=== PATIENT | female | born 1945 | race Caucasian/White ===

== ENCOUNTER 2016-12-04 13:00 | Emergency (ER) | payer MEDICARE ==
--- NOTE | 2016-12-04 14:04 | ER NURSING DOCUMENTATION ---
Nurse's Notes [facility] Name:Danna Olivares Age:71 yrs Sex:Female :1945 Arrival Date:12/04/2016 Time:13:00 Bed1 Private MD:Tika Santos Diagnosis:Cephalgia Presentation: 12/04 13:05 Acuity: FRANCISCA 3 ma 13:08 Presenting complaint: Patient states: Pt woke up yesterday AM with pain on right side tg of head (severe). thinks she lept against a hard headboard. Took 2 tylenol with no improvement. Pain has come and gone. Reecnt sinus headaches, recent dental infection (treated with amoxicillin). Describes the pain as a very focused "zing.". Transition of care: patient was not received from another setting of care. 13:08 Method Of Arrival: Private Vehicle tg Triage Assessment: 13:12 EENT: Reports intermittant blurry vision. tg 13:22 General: Appears in no apparent distress, Behavior is cooperative, pleasant. Pain: tg Complains of pain in right side of the back of head Pain At worst was 8 out of 10 on a pain scale. Pain began 1 day ago. Neuro: Level of Consciousness is awake, alert, Oriented to person, place, time, event, Moves all extremities. Speech is normal, Facial symmetry appears normal, Pupils are PERRLA, Denies weakness. Respiratory: Respiratory effort is even, unlabored. Derm: Skin is pink, warm & dry. Historical: - Allergies: TROVAN; SULFA (SULFONAMIDES); Positive latex allergy; Lisinopril; - Home Meds: 1. brio 2. OXYGEN 3. levothyroxine oral 4. Coumadin Oral 5. SPIRIVA 6. Avapro Oral 7. Lasix Oral - PMHx: PE; COPD; ASTHMA; antiphospholipid antibody; Conjunctival Abrasion (January 24, 2016); - PSHx: HYSTERECTOMY; TONSILLECTOMY; - Tetanus: < 10 years. - Ebola Screening: : Patient negative for fever greater than or equal to 101.5 degrees Fahrenheit, and additional compatible Ebola Virus Disease symptoms. Patient denies exposure to infectious person. Patient denies travel to an Ebola-affected area in the 21 days before illness onset. No symptoms or risks identified at this time. . - Immunization history: Flu Vaccine < 1 year. - Social history: Smoking status: Patient states former smoker of tobacco. Screenin:28 Infectious Disease Risk Unable to Obtain. Abuse screen: Denies threats or abuse. Denies tg injuries from another. Nutritional screening: No deficits noted. Assessment: 13:28 See Triage Assessment done by same RN. tg Vital Signs: 13:14 BP 157 / 60; Pulse 79; Resp 18; Temp 98.4(O); Pulse Ox 94% on 2.5 lpm NC; Weight 60.33 tg kg (R); Height 5 ft. (152.40 cm); Pain 4/10; 13:14 Body Mass Index 25.97 (60.33 kg, 152.40 cm) tg [place] Coma Score: 13:30 Eye Response: spontaneous(4). Verbal Response: oriented(5). Motor Response: obeys cd commands(6). Total: 15. ED Course: 13:03 Patient arrived in ED. arc 13:04 Tika Santos MD is Private Physician. arc 13:05 Triage completed. susie 13:08 Long Li RN is Primary Nurse. tg 13:27 Arm band placed on. tg 13:28 Valuables Remains with patient. tg 13:34 Brian Carey MD is Attending Physician. cd Administered Medications: No medications were administered Outcome: 13:38 Discharge ordered by . cd 13:56 Discharged to home ambulatory. tg 13:56 Condition: unchanged 13:56 Discharge Assessment: Patient awake, alert and oriented x 3. No cognitive and/or functional deficits noted. Patient verbalized understanding of disposition instructions. Pt is going directly to [facility] for eval- [facility] does not have catscan at this time 13:56 Instructed on discharge instructions, follow up and referral plans. 14:03 Patient left the ED. tg Signatures: Long Li RN RN tg Abuso, Melanie, RN RN ma Daley, Chris, MD MD cd Sushila Escoto, Reg Reg arc
--- NOTE | 2016-12-04 14:04 | ER PHYSICIAN DOCUMENTATION ---
Physician Documentation [facility] Name:Danna Olivares Age:71 yrs Sex:Female :1945 Arrival Date:12/04/2016 Time:13:00 Bed1 Private MD:Tika Santos ED, Chris Disposition: 12/04/16 13:38 Discharged to Home/Self Care. Impression: Cephalgia. - Condition is Good. - Discharge Instructions: HEADACHE, Unspecified. - Medical Reconciliation form form. - Follow up: Private Physician; When: Today; Reason: Recheck today's complaints, Continuance of care. - Problem is new. - Symptoms are unchanged. - Notes: Go to [facility] Department for evaluation and a CT scan of the Brain to rule out Intracranial Hemorrhage HPI: 12/04 13:05 This 71 yrs old Female presents to ER via Private Vehicle with complaints of cd Headache > 24hrs Old. 13:05 The patient complains of pain to the right side of the back of head and right occipital cd area. The patient describes the headache as intermittent, "zinging pain". Onset: The symptoms/episode began/occurred yesterday. Associated signs and symptoms: Pertinent negatives: altered mental status, dizziness, fever, nausea, neck stiffness, paresthesias, sinus congestion, sinus tenderness, vision changes, vision loss, vomiting, weakness. Severity of symptoms: At its worst the pain was moderate, in the emergency department the pain is unchanged. Headache History: Denies prior headaches. Patient is on Coumadin and her last INR was 2.6 6 days ago. Historical: - Allergies: TROVAN; SULFA (SULFONAMIDES); Positive latex allergy; Lisinopril; - Home Meds: 1. brio 2. OXYGEN 3. levothyroxine oral 4. Coumadin Oral 5. SPIRIVA 6. Avapro Oral 7. Lasix Oral - PMHx: PE; COPD; ASTHMA; antiphospholipid antibody; Conjunctival Abrasion (January 24, 2016); - PSHx: HYSTERECTOMY; TONSILLECTOMY; - Tetanus: < 10 years. - Ebola Screening: : Patient negative for fever greater than or equal to 101.5 degrees Fahrenheit, and additional compatible Ebola Virus Disease symptoms. Patient denies exposure to infectious person. Patient denies travel to an Ebola-affected area in the 21 days before illness onset. No symptoms or risks identified at this time. . - Immunization history: Flu Vaccine < 1 year. - Social history: Smoking status: Patient states former smoker of tobacco. ROS: 13:16 Constitutional: Negative for chills, fatigue, fever, poor PO intake. cd 13:16 Neck: Negative for pain with movement, pain at rest, stiffness. 13:16 Neuro: Positive for headache, Negative for altered mental status, dizziness, gait disturbance, loss of consciousness, numbness, seizure activity, speech changes, syncope, tingling, visual changes, weakness. 13:16 All other systems are negative. Exam: 13:16 ENT: Nares patent. No nasal discharge, no septal abnormalities noted. Tympanic cd membranes are normal and external auditory canals are clear. Oropharynx with no redness, swelling, or masses, exudates, or evidence of obstruction, uvula midline. Mucous membranes moist. Cardiovascular: Regular rate and rhythm with a normal S1 and S2. No gallops, murmurs, or rubs. Normal PMI, no JVD. No pulse deficits. Respiratory: Lungs have equal breath sounds bilaterally, clear to auscultation and percussion. No rales, rhonchi or wheezes noted. No increased work of breathing, no retractions or nasal flaring. Abdomen/GI: Soft, non-tender, with normal bowel sounds. No distension or tympany. No guarding or rebound. No evidence of tenderness throughout. Back: No spinal tenderness. No costovertebral tenderness. Full range of motion. Skin: Warm, dry with normal turgor. Normal color with no rashes, no lesions, and no evidence of cellulitis. 13:16 MS/ Extremity: Pulses equal, no cyanosis. Neurovascular intact. Full, normal range cd of motion. 13:16 Constitutional: The patient appears alert, awake, non-diaphoretic, non-toxic, well developed, well nourished, anxious, in obvious distress, mildly distressed. 13:16 Head/face: Noted is tenderness, that is mild, of the right occipital area, Sinus tenderness, is not appreciated. 13:16 Eyes: Pupils: equal, round, and reactive to light and accomodation. 13:16 Neck: ROM/movement: is normal. 13:16 Neuro: Orientation: is normal, Mentation: is normal, Cranial nerves: CN II- XII are normal as tested, Cerebellar function: is grossly normal, Motor: is normal, Sensation: is normal, Gait: is steady. Vital Signs: 13:14 BP 157 / 60; Pulse 79; Resp 18; Temp 98.4(O); Pulse Ox 94% on 2.5 lpm NC; Weight 60.33 tg kg (R); Height 5 ft. (152.40 cm); Pain 4/10; 13:14 Body Mass Index 25.97 (60.33 kg, 152.40 cm) tg [place] Coma Score: 13:30 Eye Response: spontaneous(4). Verbal Response: oriented(5). Motor Response: obeys cd commands(6). Total: 15. MDM: 13:30 Neurological re-evaluation: normal neurological exam including cranial nerves, cd orientation, mentation, motor and sensory exam, cerebellar testing, GCS normal, and normal gait. Data reviewed: vital signs, nurses notes, old medical records, and as a result, I will discharge patient, and send the patient to [facility] ED for a CT Scan of the Brain to rule out ICH. She is stable for private vehicle transport. Her INR today is 3.1. Counseling: I had a detailed discussion with the patient and/or guardian regarding: the historical points, exam findings, and any diagnostic results supporting the discharge/admit diagnosis, lab results. 13:34 Patient medically screened. cd 12/04 13:45 Order name: INR W/ CAPI DRAW; Complete Time: 21:27 EDMS 12/04 21:27 Interpretation: Abnormal: INR W/ CAPI DRAW 3.1; Patient on Coumadin. cd Dispensed Medications: No medications were administered Signatures: Long Li, RN RN tg Brian Carey MD MD cd
== END 2016-12-04 14:03 | disposition home or self-care (01) ==
LOC: ER 13:00
DX: R51 Headache (principal); Z79.01 Long term (current) use of anticoagulants; J44.9 Chronic obstructive pulmonary disease, unspecified; Z86.711 Personal history of pulmonary embolism; Z79.899 Other long term (current) drug therapy; Z99.81 Dependence on supplemental oxygen
CPT/HCPCS: 85610; 99281; 99282

== ENCOUNTER 2017-02-26 10:10 | Emergency (ER) | payer MEDICARE ==
--- NOTE | 2017-02-26 11:32 | ER NURSING DOCUMENTATION ---
Nurse's Notes [facility] Name:Danna Olivares Age:72 yrs Sex:Female :1945 Arrival Date:02/26/2017 Time:10:10 Bed1 Private MD: Diagnosis:Insect Bite Presentation: 02/26 10:43 Presenting complaint: Patient states: R thigh insect bite. Transition of care: Home. lp 10:43 Acuity: FRANCISCA 3 lp 10:43 Method Of Arrival: Private Vehicle lp Triage Assessment: 10:49 Bite description: bite sustained to lateral aspect of right thigh by an unknown animal, lp animal information: is superficial. General: Appears in no apparent distress, Behavior is appropriate for age. Pain: Complains of pain in lateral aspect of right thigh. EENT: No deficits noted. Neuro: No deficits noted. Cardiovascular: No deficits noted. Respiratory: No deficits noted. GI: No deficits noted. : No deficits noted. Derm: Skin has blisters on R posterior thigh. Musculoskeletal: No deficits noted. 10:52 Bite description: animal information: vaccination(s) is current. lp Historical: - Allergies: TROVAN; SULFA (SULFONAMIDES); Positive latex allergy; Lisinopril; - Home Meds: 1. brio 2. OXYGEN 3. levothyroxine oral 4. Coumadin Oral 5. SPIRIVA 6. Avapro Oral 7. Lasix Oral - PMHx: PE; COPD; ASTHMA; antiphospholipid antibody; Conjunctival Abrasion (January 24, 2016); Cephalgia (December 04, 2016); - PSHx: HYSTERECTOMY; TONSILLECTOMY; - Tetanus: < 10 years. - Ebola Screening: : Patient negative for fever greater than or equal to 101.5 degrees Fahrenheit, and additional compatible Ebola Virus Disease symptoms. Patient denies exposure to infectious person. Patient denies travel to an Ebola-affected area in the 21 days before illness onset. . - Immunization history: Pneumococcal vaccine is up to date, Flu Vaccine < 1 year. - Social history: Smoking status: Patient states former smoker of tobacco. Screenin:51 Infectious Disease Risk None. Abuse screen: Denies threats or abuse. Denies injuries lp from another. Nutritional screening: No deficits noted. Assessment: 10:51 See Triage Assessment done by same RN. lp 10:52 Derm: Skin is pink, warm & dry. lp Vital Signs: 10:46 BP 111 / 80; Pulse 89; Resp 20; Temp 98.2(O); Pulse Ox 94% on 3 lpm NC; Weight 61.23 kg arc (R); Height 5 ft. 0 in. (152.40 cm) (R); Pain 0/10; 10:46 Body Mass Index 26.37 (61.23 kg, 152.40 cm) arc ED Course: 10:11 Patient arrived in ED. jt 10:43 Madisyn Ascencio RN is Primary Nurse. lp 10:43 Triage completed. lp 10:44 Garrison Deal MD is Attending Physician. tl1 10:[address] Deal notified. lp 10:52 Valuables Remains with patient Patient has correct armband on for positive lp identification. Bed in low position. Call light in reach. Side rails up X 1. 11:25 Tika Santos MD is Referral Physician. tl1 Administered Medications: No medications were administered Outcome: 11:26 Discharge ordered by . tl1 11:26 Discharged to home ambulatory. lp 11:26 Condition: stable 11:26 Instructed on discharge instructions, follow up and referral plans. medication usage. 11:31 Patient left the ED. lp Signatures: Madisyn Ascencio RN RN lp Garrison Deal MD MD tl1 Sushila Escoto, Ayse Cano
--- NOTE | 2017-02-28 11:32 | ER PHYSICIAN DOCUMENTATION ---
Physician Documentation [facility] Name:Danna Olivares Age:72 yrs Sex:Female :1945 Arrival Date:02/26/2017 Time:10:10 Bed1 Private MD: Garrison Scott Disposition: 02/26 11:40 Chart complete. tl1 Disposition: 02/26/17 11:26 Discharged to Home/Self Care. Impression: Insect Bite. - Condition is Good. - Discharge Instructions: BITESTING Insect Infected - INSECT STING/BITE, Infected. - Medical Reconciliation form form. - Follow up: Tika Santos MD; When: 4- 6 days; Reason: Recheck today's complaints, Continuance of care. Follow up: Emergency Department; When: Tomorrow; Reason: Recheck today's complaints. - Problem is new. - Symptoms are unchanged. HPI: 11:00 This 72 yrs old Female presents to ER via Private Vehicle with complaints of tl1 Insect Bite - RIGHT THIGH. 11:00 The patient was bitten on the lateral aspect of right thigh, by an unknown animal or tl1 organism, at home, at in bed last night. Onset: The symptom(s)/episode began/occurred suddenly, this morning. Historical: - Allergies: TROVAN; SULFA (SULFONAMIDES); Positive latex allergy; Lisinopril; - Home Meds: 1. brio 2. OXYGEN 3. levothyroxine oral 4. Coumadin Oral 5. SPIRIVA 6. Avapro Oral 7. Lasix Oral - PMHx: PE; COPD; ASTHMA; antiphospholipid antibody; Conjunctival Abrasion (January 24, 2016); Cephalgia (December 04, 2016); - PSHx: HYSTERECTOMY; TONSILLECTOMY; - Tetanus: < 10 years. - Ebola Screening: : Patient negative for fever greater than or equal to 101.5 degrees Fahrenheit, and additional compatible Ebola Virus Disease symptoms. Patient denies exposure to infectious person. Patient denies travel to an Ebola-affected area in the 21 days before illness onset. . - Immunization history: Pneumococcal vaccine is up to date, Flu Vaccine < 1 year. - Social history: Smoking status: Patient states former smoker of tobacco. ROS: 11:00 Skin: Positive for lesions. tl1 11:00 All other systems are negative. Exam: 11:00 Constitutional: This is a well developed, well nourished patient who is awake, alert, tl1 and in no acute distress. 11:00 Cardiovascular: Exam negative for acute changes. 11:00 Respiratory: Respirations: normal. 11:00 Skin: Appearance: normal except for affected area, lesion(s), noted, and can be described as bullae noted. Vital Signs: 10:46 BP 111 / 80; Pulse 89; Resp 20; Temp 98.2(O); Pulse Ox 94% on 3 lpm NC; Weight 61.23 kg arc (R); Height 5 ft. 0 in. (152.40 cm) (R); Pain 0/10; 10:46 Body Mass Index 26.37 (61.23 kg, 152.40 cm) arc MDM: 10:44 Patient medically screened. tl1 11:26 Patient medically screened. tl1 11:40 Differential diagnosis: probable bullous reaction to an insect bite. Doubt brown tl1 recluse. No evidence of infection now. Infection risk factors: No risk factors present. Rabies Status: Rabies immunization is not indicated Rabies immune globulin is indicated for this patient. Data reviewed: vital signs, nurses notes, and as a result, I will discharge patient. Counseling: I had a detailed discussion with the patient and/or guardian regarding: the historical points, exam findings, and any diagnostic results supporting the discharge/admit diagnosis, the need for outpatient follow up, to return to the emergency department if symptoms worsen or persist or if there are any questions or concerns that arise at home. Special discussion: I asked her to return tomorrow for a recheck. Dispensed Medications: No medications were administered Signatures: Madisyn Ascencio, RN Garrison Pitts lp, MD MD tl1
== END 2017-02-26 11:32 | disposition home or self-care (01) ==
LOC: ER 10:10
DX: S70.361A Insect bite (nonvenomous), right thigh, initial encounter (principal); W57.XXXA Bitten or stung by nonvenomous insect and other nonvenomous arthropods, initial encounter; J44.9 Chronic obstructive pulmonary disease, unspecified; Z86.711 Personal history of pulmonary embolism; Z79.01 Long term (current) use of anticoagulants; Z79.899 Other long term (current) drug therapy
CPT/HCPCS: 99281; 99282

== ENCOUNTER 2017-02-27 07:38 | Emergency (ER) | payer MEDICARE ==
--- NOTE | 2017-02-27 07:54 | ER PHYSICIAN DOCUMENTATION ---
Physician Documentation [facility] Name:Danna Olivares Age:72 yrs Sex:Female :1945 Arrival Date:02/26/2017 Time:07:38 Bed2 Private MD: Garrison Scott Disposition: 02/27 07:59 Chart complete. tl1 Disposition: 02/27/17 07:54 Discharged to Home/Self Care. Impression: Wound Recheck. - Condition is Good. - Medical Reconciliation form form. - Follow up: Garrison Deal MD; When: As needed; Reason: Worsening of condition. - Problem is new. - Symptoms are unchanged. HPI: 07:52 This 72 yrs old Female presents to ER via Private Vehicle with complaints of tl1 Recheck. 07:52 She has had an insect bite since yesterday, when I saw her. It is no worse today. Bulla tl1 is still intact with very slight erythema surrounding it, mostly proximal.. Historical: - Allergies: TROVAN; SULFA (SULFONAMIDES); Positive latex allergy; Lisinopril; - Home Meds: 1. brio 2. OXYGEN 3. levothyroxine oral 4. Coumadin Oral 5. SPIRIVA 6. Avapro Oral 7. Lasix Oral - PMHx: PE; COPD; ASTHMA; antiphospholipid antibody; Conjunctival Abrasion (January 24, 2016); Cephalgia (December 04, 2016); Insect Bite (February 26, 2017); - PSHx: HYSTERECTOMY; TONSILLECTOMY; - Tetanus: < 10 years. - Ebola Screening: : Patient negative for fever greater than or equal to 101.5 degrees Fahrenheit, and additional compatible Ebola Virus Disease symptoms. Patient denies exposure to infectious person. Patient denies travel to an Ebola-affected area in the 21 days before illness onset. . - Immunization history: Pneumococcal vaccine is up to date, Flu Vaccine < 1 year. - Social history: Smoking status: Patient states former smoker of tobacco. ROS: 07:54 MS/extremity: Negative for erythema, tingling, warmth. tl1 07:54 All other systems are negative. Exam: 07:54 Musculoskeletal/extremity: Exam is negative for acute changes. tl1 07:54 Skin: lesion(s), noted, and can be described as intact bulla with clear fluid. Vital Signs: 07:51 Resp 14; Temp 98.6; Pulse Ox 93% on 2 lpm NC; lp 07:51 Baseline O2 per home setting lp MDM: 07:40 Data reviewed: and as a result, I will discharge patient. Counseling: I had a detailed tl1 discussion with the patient and/or guardian regarding: the historical points, exam findings, and any diagnostic results supporting the discharge/admit diagnosis, to return to the emergency department if symptoms worsen or persist or if there are any questions or concerns that arise at home, this does not seem any worse. I advised her to debride the skin when the blister pops and cover it with bacitracin and a bandage until it heals. F/U with Dr Santos for any ongoing concerns.. 07:51 Patient medically screened. tl1 Dispensed Medications: No medications were administered Signatures: Madisyn Ascencio RN RN Garrison Deal MD MD tl1
--- NOTE | 2017-02-27 07:54 | ER NURSING DOCUMENTATION ---
Nurse's Notes [facility] Name:Danna Olivares Age:72 yrs Sex:Female :1945 Arrival Date:02/26/2017 Time:07:38 Bed2 Private MD: Diagnosis:Wound Recheck Presentation: 02/27 07:49 Presenting complaint: Patient states: Re-check of blister. Transition of care: Home. lp Notified ED Physician of Dr. Deal notified. 07:49 Acuity: FRANCISCA 5 lp 07:49 Method Of Arrival: Private Vehicle lp Triage Assessment: 07:51 General: Appears in no apparent distress, Behavior is appropriate for age. Pain: Denies lp pain. Derm: Skin has blisters on One blister to R posterior thigh. Historical: - Allergies: TROVAN; SULFA (SULFONAMIDES); Positive latex allergy; Lisinopril; - Home Meds: 1. brio 2. OXYGEN 3. levothyroxine oral 4. Coumadin Oral 5. SPIRIVA 6. Avapro Oral 7. Lasix Oral - PMHx: PE; COPD; ASTHMA; antiphospholipid antibody; Conjunctival Abrasion (January 24, 2016); Cephalgia (December 04, 2016); Insect Bite (February 26, 2017); - PSHx: HYSTERECTOMY; TONSILLECTOMY; - Tetanus: < 10 years. - Ebola Screening: : Patient negative for fever greater than or equal to 101.5 degrees Fahrenheit, and additional compatible Ebola Virus Disease symptoms. Patient denies exposure to infectious person. Patient denies travel to an Ebola-affected area in the 21 days before illness onset. . - Immunization history: Pneumococcal vaccine is up to date, Flu Vaccine < 1 year. - Social history: Smoking status: Patient states former smoker of tobacco. Screenin:52 Infectious Disease Risk None. Abuse screen: Denies threats or abuse. Denies injuries lp from another. Nutritional screening: No deficits noted. Vital Signs: 07:51 Resp 14; Temp 98.6; Pulse Ox 93% on 2 lpm NC; lp 07:51 Baseline O2 per home setting lp ED Course: 07:41 Patient arrived in ED. dp 07:49 Madisyn Ascencio RN is Primary Nurse. lp 07:49 Triage completed. lp 07:51 Garrison Deal MD is Attending Physician. tl1 07:[address] Deal notified. lp 07:52 Valuables Remains with patient. lp 07:52 Recheck of Blister on lateral aspect of right thigh. lp 07:53 Garrison Deal MD is Referral Physician. lp Administered Medications: No medications were administered Outcome: 07:53 Discharged to home lp 07:53 Condition: good 07:53 Instructed on follow up and referral plans. 07:53 No charge visit due to Re-check no charge per MD. 07:54 Discharge ordered by MD. lp 07:54 Patient left the ED. lp Signatures: Madisyn Ascencio RN RN lp Garrison Deal MD MD tl1 Milagros Lucio dp
== END 2017-02-27 07:53 | disposition home or self-care (01) ==
LOC: ER 07:38
DX: Z51.89 Encounter for other specified aftercare (principal); S70.361D Insect bite (nonvenomous), right thigh, subsequent encounter